=== PATIENT | male | born 1980 | race Caucasian/White ===

== ENCOUNTER 2016-05-18 22:59 | Emergency (ER) | payer SELFPAY ==
[~2016-05-18] VITALS: Ht 188 cm; Wt 98.9 kg
[~2016-05-18 22:59] MED LIST: PROAIR HFA0.09 MG/Ac IH
[2016-05-18 23:00] VITALS: BP 148/106
--- NOTE | 2016-05-18 23:25 | NUR ---
PT TAKEN TO BED 1
--- NOTE | 2016-05-18 23:31 | NUR ---
Dr. Chapman evaluating patient at bedside.
--- NOTE | 2016-05-18 23:34 | NUR ---
PATIENT PRESENTS TO ED WITH C/O SOB AND LIGHTHEADEDNESS AFTER TAKING TWO OF HIS WIFES DIET PILLS YESTERDAY PT DENIES N/V/D; SKIN IS PINK/WARM/DRY; AAOX4 WITH EVEN AND STEADY GAIT; LUNGS CLEAR BL; HR EVEN AND REGULAR; PT DENIES ANY FEVER, CP, SOB, OR COUGH AT THIS TIME; PATIENT STATES PAIN OF 0/10 AT THIS TIME; VSS; PATIENT POSITIONED FOR COMFORT; HOB ELEVATED; BEDRAILS UP X2; BED DOWN. ER MD MADE AWARE OF PT STATUS.
[2016-05-18] MEDS ORDERED: NACL 0.9% 1,000 ML IV SCH (23:35)
[2016-05-18] MEDS ORDERED: ACETAMINOPHEN EXTRA STRENGTH 500 MG TAB PO ONE (23:40)
[2016-05-19 01:20] VITALS: BP 138/86
--- NOTE | 2016-05-19 01:20 | NUR ---
Patient discharged with v/s stable. Written and verbal after care instructions given and explained. Patient verbalized understanding. Ambulatory with steady gait. All questions addressed prior to discharge. Advised to follow up with PMD.
== END 2016-05-19 01:20 | disposition home or self-care (01) ==
LOC: MED 22:59
DX: T50.901A Poisoning by unspecified drugs, medicaments and biological substances, accidental (unintentional), initial encounter (principal); F41.9 Anxiety disorder, unspecified; R06.02 Shortness of breath; R03.0 Elevated blood-pressure reading, without diagnosis of hypertension; Y92.89 Other specified places as the place of occurrence of the external cause; J45.909 Unspecified asthma, uncomplicated
CPT/HCPCS: 36415; 80053; 80305; 81001; 85025; 96360; 99284; J7030

== ENCOUNTER 2017-07-04 00:03 | Emergency (ER) | payer SELFPAY ==
[~2017-07-04] VITALS: Ht 188 cm; Wt 95.3 kg
[~2017-07-04 00:03] MED LIST changes: +ALBU-136 IH; -PROAIR HFA0.09 MG/Ac IH
--- NOTE | 2017-07-04 00:08 | NUR ---
PT TAKEN TO CHAIR A
[2017-07-04 00:11] VITALS: BP 136/80
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
--- NOTE | 2017-07-04 00:23 | NUR ---
Dr. Hayes evaluating patient.
[2017-07-04] MEDS ORDERED: CYCLOBENZAPRINE 10 MG TAB PO ONE (00:25)
[2017-07-04] MEDS ORDERED: KETOROLAC 30 MG/ML VIAL IM ONE (00:25)
--- NOTE | 2017-07-04 00:43 | NUR ---
PT TAKEN TO XRAY
[2017-07-04 01:22] VITALS: BP 122/71
--- NOTE | 2017-07-04 01:22 | NUR ---
Patient discharged with v/s stable. Written and verbal after care instructions given and explained. Patient alert, oriented and verbalized understanding of instructions. Ambulatory with steady gait. All questions addressed prior to discharge. ID band removed. Patient advised to follow up with PMD. Rx of FLEXERIL 10 MG, MOTRIN 800 MG given. Patient educated on indication of medication including possible reaction and side effects. Opportunity to ask questions provided and answered.
== END 2017-07-04 01:22 | disposition home or self-care (01) ==
LOC: MED 00:03
DX: S39.012A Strain of muscle, fascia and tendon of lower back, initial encounter (principal); R03.0 Elevated blood-pressure reading, without diagnosis of hypertension; J45.909 Unspecified asthma, uncomplicated; Z79.899 Other long term (current) drug therapy; X58.XXXA Exposure to other specified factors, initial encounter; Y93.89 Activity, other specified; Y92.89 Other specified places as the place of occurrence of the external cause; Y99.8 Other external cause status
CPT/HCPCS: 72100; 81002; 96372; 99284; J1885

== ENCOUNTER 2018-02-04 00:39 | Emergency (ER) | payer OTHER ==
[~2018-02-04] VITALS: Ht 188 cm; Wt 108.9 kg
--- NOTE | 2018-02-04 00:46 | NUR ---
Patient ambulated to bed 5 with family. RN evaluating patient at bedside.
[2018-02-04 00:51] VITALS: BP 120/77
--- NOTE | 2018-02-04 01:07 | NUR ---
accelerator technician at bedside.
--- NOTE | 2018-02-04 01:23 | NUR ---
PT PRESENTS TO ED WITH C/O SORE THROAT X 2 DAYS, HX ASTHMA. AAO X4, GCS 15, ABLE TO SPEAK WITH FULL COMPLETE SNTENCES. RESPIRATIONS EVEN AND UNLABORED, BL LUNG CLEAR. AIRWAY INTACT. SKIN WARM/PINK/DRY, +PMSC. VSS, ER MD MADE AWARE OF PT STATUS. WILL CONTINUE TO MONITOR
[2018-02-04] MEDS ORDERED: predniSONE 20 MG TAB PO ONE (01:50)
[2018-02-04 02:28] VITALS: BP 120/61
--- NOTE | 2018-02-04 02:28 | NUR ---
Patient discharged with v/s stable. Written and verbal after care instructions given and explained. Patient alert, oriented and verbalized understanding of instructions. Ambulatory with steady gait. All questions addressed prior to discharge. ID band removed. Patient advised to follow up with PMD. Rx of Prednisone, Naprosyn, and amoxicillin given. Patient educated on indication of medication including possible reaction and side effects. Opportunity to ask questions provided and answered.
== END 2018-02-04 02:28 | disposition home or self-care (01) ==
LOC: MED 00:39
DX: K12.2 Cellulitis and abscess of mouth (principal); J45.909 Unspecified asthma, uncomplicated
CPT/HCPCS: 36415; 71045; 87081; 87804; 99285; J7512; Q0092

== ENCOUNTER 2019-01-25 17:12 | Emergency (ER) | payer OTHER ==
[~2019-01-25] VITALS: Ht 185.4 cm; Wt 112.9 kg
[2019-01-25 17:17] VITALS: BP 128/74
[2019-01-25] MEDS ORDERED: predniSONE 20 MG TAB PO ONE (18:25)
[2019-01-25 18:45] VITALS: BP 136/81
== END 2019-01-25 18:45 | disposition home or self-care (01) ==
LOC: MED 17:12
DX: J45.909 Unspecified asthma, uncomplicated (principal); F17.210 Nicotine dependence, cigarettes, uncomplicated; Z79.51 Long term (current) use of inhaled steroids
CPT/HCPCS: 71045; 99283; J7512

== ENCOUNTER 2022-02-02 21:28 | Emergency (ER) | payer OTHER ==
[~2022-02-02] VITALS: Ht 188 cm; Wt 120.2 kg
[~2022-02-02 21:28] MED LIST changes: +ALBU-118 IH; -ALBU-136 IH
[2022-02-02 21:41] VITALS: BP 164/100
--- NOTE | 2022-02-02 21:46 | NUR ---
TO LOBBY A/W BED AMBULATORY
[2022-02-02] MEDS ORDERED: ASPIRIN 325 MG TAB PO ONE (22:45)
[2022-02-02 23:11] LABS: BASOPHILS # (AUTO) 0.1 K/uL (0.00-0.22); BASOPHILS % (AUTO) 0.5 % (0.0-2.0); EOSINOPHILS # (AUTO) 0.1 K/uL (0-0.4); EOSINOPHILS % (AUTO) 0.9 % (0.0-4.0); HEMOGLOBIN 15.9 g/dL (12.0-18.0); LYMPHOCYTES # (AUTO) 3.7 K/uL (2.0-11.5); LYMPHOCYTES % (AUTO) 22.8 % (20.5-51.1); MEAN CORPUSCULAR HEMOGLOBIN 32 pg (27-31); MEAN CORPUSCULAR HGB CONC 34 g/dL (33-37); MEAN CORPUSCULAR VOLUME 94.2 fL (80-94); MONOCYTES # (AUTO) 1.6 K/uL (0.8-1.0); MONOCYTES % (AUTO) 9.7 % (1.7-9.3); NEUTROPHILS # (AUTO) 10.8 K/uL (1.8-7.7); NEUTROPHILS % (AUTO) 66.1 % (42.2-75.2); PLATELET COUNT (AUTO) 336 K/uL (140-450); RED BLOOD CELL COUNT(AUTO) 4.99 MIL/uL (4.20-6.10); RED CELL DISTRIBUTION WIDTH 13.5 % (11.6-13.7); WHITE BLOOD COUNT (AUTO) 16.3 K/uL (4.8-10.8)
[2022-02-02 23:39] LABS: ALBUMIN 3.9 g/dL (3.4-5.0); ANION GAP 15.9 (8-16); ASPARTATE AMINOTRANSFERASE 227 U/L (15-37); CHLORIDE 100 mmol/L (98-107); CREATININE 0.9 mg/dL (0.6-1.3); GFR ARICAN-AMERICAN 118 mL/min (>90); GLUCOSE 124 mg/dL (74-106); LIPASE 86 U/L (73-393); POTASSIUM 5.9 mmol/L (3.5-5.1); SODIUM SERUM 135 mmol/L (136-145); TOTAL BILIRUBIN 2.2 mg/dL (0.0-1.0); UREA NITROGEN, BLOOD 17 mg/dL (7-18)
[2022-02-03] MEDS ORDERED: SODIUM ZIRCONIUM CYCLOSILICATE 10 GM POWD.PACK PO ONE (01:55)
[2022-02-03] MEDS ORDERED: LORazepam 1 MG TAB PO ONE (01:55)
--- NOTE | 2022-02-03 01:59 | NUR ---
Note undone in EDM - 02/03/22 at 0216 by MNURPM 53 YO F BIB SELF WITH C/C OF 7 ABD PAIN X2DAYS. PT REPORTS NAUSEA. DENIES V/D. DENIES DIARRHEA. DENIES TAKING MEDICATION FOR PAIN. PT STATES SHE FEELS DISTENDED. DENIES HX, RX AND ALLERGIES
[2022-02-03 02:09] LABS: BARBITURATE, URINE NEGATIVE ng/ml (NEG <=200); BENZODIAZEPINE, URINE NEGATIVE ng/mL (NEG <=200); CANNABINOID, URINE NEGATIVE ng/mL (NEG <=50); COCAINE, URINE NEGATIVE ng/mL (NEG <=300); OPIATE, URINE NEGATIVE ng/mL (NEG <=2000); PHENCYCLIDINE SCREEN,URINE NEGATIVE ng/mL (NEG <=25)
--- NOTE | 2022-02-03 02:16 | NUR ---
42YR OLD MALE BIB SELF C/O CP DIZZINESS SOB. PT ADMITS TO USING METH YESTERDAY. DENIES ACUTAL CP PAIN, STATES MORE OF PRESSURE. PT IS A&OX4 SP02 98% RA. HOB ELEVATED. SKIN WARM AND DRY. NO DISTRESS NOTED. PT ON BEDSIDE MONITOR. NKDA ASTHMA
[2022-02-03 02:20] VITALS: BP 143/94
--- NOTE | 2022-02-03 02:20 | NUR ---
Patient does not wish to proceed with medical care recommended by DR MARTIN. Patient given information related to possible complications, up to and including , which could occur as a result of leaving hospital at this time. Patient verbalizes understanding of risks involved leaving against medical advice. Patient has signed AMA form.
--- NOTE | 2022-02-03 02:25 | NUR ---
The patient's care was reviewed and supervised by Joslyn Carmichael RN, RN.
== END 2022-02-03 02:20 | disposition left against medical advice (07) ==
LOC: MED 21:28
DX: R07.9 Chest pain, unspecified (principal); E87.5 Hyperkalemia; J45.909 Unspecified asthma, uncomplicated; F15.10 Other stimulant abuse, uncomplicated
CPT/HCPCS: 36415; 71045; 80053; 80305; 83690; 84484; 85025; 93005; 99285

== ENCOUNTER 2022-09-16 19:13 | Emergency (ER) | payer OTHER ==
[~2022-09-16] VITALS: Ht 188 cm; Wt 108.9 kg
[2022-09-16 19:24] VITALS: BP 123/70; PULSE 61; RESP 17; TEMP 97.9; O2SAT 99
--- NOTE | 2022-09-16 19:29 | NUR ---
pt to les ambulatory w steady gait
--- NOTE | 2022-09-16 21:13 | NUR ---
PT TO BED #10
--- NOTE | 2022-09-16 21:54 | NUR ---
POSTERIOR SHORT LEG SPLINT APPLIED, AND VERIFIED BY HUMERA RODRIGUEZ.
[2022-09-16] MEDS ORDERED: IBUP-2213 PO (21:55)
[2022-09-16] MEDS ORDERED: KETOROLAC 15 MG/ML VIAL IM ONE (22:00)
[2022-09-16 22:12] VITALS: BP 117/75; PULSE 65; RESP 16; TEMP 97.7; O2SAT 99
--- NOTE | 2022-09-16 22:13 | NUR ---
Patient discharged with v/s stable. Written and verbal after care instructions given and explained. Patient alert, oriented and verbalized understanding of instructions. Ambulatory with steady gait W CRUTCHES. All questions addressed prior to discharge. ID band removed. Patient advised to follow up with PMD. Rx of IBUPROFEN given. Patient educated on indication of medication including possible reaction and side effects. Opportunity to ask questions provided and answered.
== END 2022-09-16 22:13 | disposition home or self-care (01) ==
LOC: MED 19:13
DX: S82.832A Other fracture of upper and lower end of left fibula, initial encounter for closed fracture (principal); J45.909 Unspecified asthma, uncomplicated; Z79.899 Other long term (current) drug therapy; Z79.1 Long term (current) use of non-steroidal anti-inflammatories (NSAID); X58.XXXA Exposure to other specified factors, initial encounter; Y92.89 Other specified places as the place of occurrence of the external cause; Y93.89 Activity, other specified; Y99.8 Other external cause status
CPT/HCPCS: 29515; 73610; 96372; 99283; J1885

== ENCOUNTER 2022-11-22 19:26 | Emergency (ER) | payer OTHER ==
[~2022-11-22] VITALS: Ht 188 cm; Wt 108.9 kg
[~2022-11-22 19:26] MED LIST changes: +IBUP-2213 PO
[2022-11-22 19:48] VITALS: BP 156/90; PULSE 102; RESP 17; TEMP 97.7; O2SAT 98
[2022-11-22] MEDS ORDERED: ALBUTEROL 0.083% 2.5 MG/3 ML NEBU INH ONE (19:55)
[2022-11-22] MEDS ORDERED: NACL 0.9% 1,000 ML IV ONE (19:55)
[2022-11-22 20:18] VITALS: PULSE 103; RESP 15; O2SAT 97
[2022-11-22 20:37] LABS: BASOPHILS # (AUTO) 0.1 K/uL (0.00-0.22); BASOPHILS % (AUTO) 0.4 % (0.0-2.0); EOSINOPHILS # (AUTO) 0.1 K/uL (0-0.4); EOSINOPHILS % (AUTO) 0.8 % (0.0-4.0); HEMATOCRIT 44.3 % (36-52); HEMOGLOBIN 15.1 g/dL (12.0-18.0); LYMPHOCYTES # (AUTO) 2.8 K/uL (2.0-11.5); LYMPHOCYTES % (AUTO) 21.1 % (20.5-51.1); MEAN CORPUSCULAR HEMOGLOBIN 31 pg (27-31); MEAN CORPUSCULAR HGB CONC 34 g/dL (33-37); MEAN CORPUSCULAR VOLUME 92.4 fL (80-94); MONOCYTES % (AUTO) 7.9 % (1.7-9.3); NEUTROPHILS # (AUTO) 9.2 K/uL (1.8-7.7); NEUTROPHILS % (AUTO) 69.8 % (42.2-75.2); PLATELET COUNT (AUTO) 265 K/uL (140-450); RED BLOOD CELL COUNT(AUTO) 4.79 MIL/uL (4.20-6.10); RED CELL DISTRIBUTION WIDTH 13.2 % (11.6-13.7); WHITE BLOOD COUNT (AUTO) 13.2 K/uL (4.8-10.8)
[2022-11-22 20:55] LABS: ALBUMIN 3.9 g/dL (3.4-5.0); ANION GAP 12.7 (8-16); CALCIUM 8.8 mg/dL (8.5-10.1); CARBON DIOXIDE 26.2 mmol/L (21-32); CREATININE 1.3 mg/dL (0.6-1.3); POTASSIUM 3.9 mmol/L (3.5-5.1); TOTAL BILIRUBIN 1.4 mg/dL (0.0-1.0); TOTAL PROTEIN, SERUM 8.3 g/dL (6.4-8.2)
[2022-11-22] MEDS ORDERED: BEN10 PO (23:30)
[2022-11-22] MEDS ORDERED: HYDROcodone/APAP 5/325 MG 1 TAB TAB PO ONE (23:35)
[2022-11-22 23:42] VITALS: BP 138/96; PULSE 97; RESP 17; O2SAT 99
== END 2022-11-22 23:40 | disposition home or self-care (01) ==
LOC: MED 19:26
DX: R10.30 Lower abdominal pain, unspecified (principal); F17.210 Nicotine dependence, cigarettes, uncomplicated; J45.909 Unspecified asthma, uncomplicated; Z79.899 Other long term (current) drug therapy
CPT/HCPCS: 36415; 71045; 74177; 76705; 80053; 83690; 84484; 85025; 93005; 94640; 96360; 99285; J7613; Q0092; Q9967